=== PATIENT | male | born 1990 | race African-American/Black ===

== ENCOUNTER 2016-06-19 10:48 | Emergency (ER) | payer OTHER ==
[~2016-06-19] VITALS: Ht 172.7 cm; Wt 70.0 kg
[~2016-06-19 10:48] MED LIST: Z.0.NO CURRENT MEDS; ZITH250T PO
[2016-06-19 10:49] VITALS: BP 134/73; PULSE 98; RESP 18; TEMP 98.1; O2SAT 98
--- NOTE | 2016-06-19 11:27 | PD ---
HPI Chief Complaint: GI Complaint Time Seen by Provider: 11:10 Travel History International Travel<30 days: No Contact w/Intl Traveler<30days: No Traveled to known affect area: No History of Present Illness HPI This patient complains of having a flare of hiccups. This current flare has been going on for 7 days. Severity is moderate. He is not having any pain. He is annoyed by the hiccups. No alleviating factors. He has had many spells like this in the past and they usually last around a week and resolve on their own. Has not had medical evaluation for them. PFSH Past Medical History Blood Disorders: No Cancer: No Cardiovascular Problems: No Diminished Hearing: No Endocrine: No Gastrointestinal Disorders: Yes Genitourinary: No Immune Disorder: No Musculoskeletal: No Neurologic: No Psychiatric: No Reproductive: No Respiratory: No Migraines: Yes (2002) Tetanus Vaccination: < 5 Years Influenza Vaccination: No Past Surgical History Surgical History: No Previous Surgery AICD: No Arteriovenous Shunt: No Insulin Pump: No Joint Replacement: No Pacemaker: No Other Surgery: No Social History Alcohol Use: Yes (OCCASIONALLY) Tobacco Use: Yes (1 PPD) Substance Use: No (denies) Allergies-Medications (Allergen,Severity, Reaction): Coded Allergies: Seafood (Verified Allergy, Severe, rash, 06/19/16) Reported Meds & Prescriptions Reported Meds & Active Scripts Active No Active Prescriptions or Reported Medications Review of Systems General / Constitutional: No: Fever Eyes: No: Visual changes HENT: No: Headaches Cardiovascular: No: Chest Pain or Discomfort Respiratory: No: Shortness of Breath Gastrointestinal: No: Abdominal Pain Genitourinary: No: Dysuria Musculoskeletal: No: Pain Skin: No Rash Neurologic: No: Weakness Psychiatric: No: Depression Endocrine: No: Polydipsia Hematologic/Lymphatic: No: Easy Bruising Physical Exam Narrative GENERAL: Well-nourished, well-developed patient with frequent uncontrollable hiccups . SKIN: Warm and dry. HEAD: Atraumatic. Normocephalic. EYES: Pupils equal and round. No scleral icterus. No injection or drainage. ENT: No nasal bleeding or discharge. Mucous membranes pink and moist. NECK: Trachea midline. No JVD. CARDIOVASCULAR: Regular rate and rhythm. No murmur appreciated. RESPIRATORY: No accessory muscle use. Clear to auscultation. Breath sounds equal bilaterally. GASTROINTESTINAL: Abdomen soft, non-tender, nondistended. Hepatic and splenic margins not palpable. MUSCULOSKELETAL: No obvious deformities. No clubbing. No cyanosis. No edema. NEUROLOGICAL: Awake and alert. No obvious cranial nerve deficits. Motor grossly within normal limits. Normal speech. PSYCHIATRIC: Appropriate mood and affect; insight and judgment normal. Data Data Last Documented VS Vital Signs Date Time Temp Pulse Resp B/P Pulse Ox O2 Delivery O2 Flow Rate FiO2 06/19/16 11:16 16 06/19/16 10:49 98.1 98 134/73 98 Room Air Orders Chest, Single Ap (06/19/16 ) Chlorpromazine Inj (Thorazine Inj) (06/19/16 11:30) MDM Medical Decision Making Medical Screen Exam Complete: Yes Emergency Medical Condition: Yes Medical Record Reviewed: Yes Differential Diagnosis Diaphragmatic irritation, intractable hiccups, pleural effusion Narrative Course I have reviewed the patient's electronic medical record. Patient has been seen here prior for finger dislocation and several other minor issues I reviewed his chest x-ray which is normal No objective findings on exam. We discussed risks and benefits and alternatives of Thorazine injection and he agrees to try Possibility of sedation and dystonic reaction were discussed prior Gave him 25 mg IM Thorazine I observed him for a while He is resting comfortably on recheck Still has some hiccups Hopefully this will help lessen the frequency Recommending primary care follow-up This is an acute flare of a chronic intermittent problem Diagnosis Primary Impression: Intractable hiccups Additional Instructions: The patient was advised to follow up with their physician and return if they worsen. Med/Other Pt SpecificInfo: Other Scripts No Active Prescriptions or Reported Meds Disposition: 01 DISCHARGE HOME Condition: Stable Lito Lange MD Jun 19, 2016 11:27
--- NOTE | 2016-06-19 11:50 | RADRPT ---
EXAM DATE/TIME: 06/19/2016 11:26 [facility] COMPARISON: CHEST PA & LAT, May 31, 2012, 20:47. INDICATIONS : Hematemesis. MEDICAL HISTORY : None. SURGICAL HISTORY : None. ENCOUNTER: Initial ACUITY: 1 day PAIN SCORE: 0/10 LOCATION: Bilateral chest FINDINGS: A single view of the chest demonstrates the lungs to be symmetrically aerated without evidence of mas s, infiltrate or effusion. The cardiomediastinal contours are unremarkable. Osseous structures are intact. CONCLUSION: No acute disease. Rosalio Martínez MD on June 19, 2016 at 11:48 Board Certified Radiologist. This report was verified electronically.
[2016-06-19 13:50] VITALS: BP 120/77; TEMP 97.8
== END 2016-06-19 13:50 | disposition home or self-care (01) ==
LOC: NEPA 10:48
DX: R06.6 Hiccough (principal); F17.210 Nicotine dependence, cigarettes, uncomplicated
CPT/HCPCS: 71010; 96372; 99283; J3230